=== PATIENT | male | born 1985 | race Two or more races ===

== ENCOUNTER 2016-06-01 15:48 | Emergency (ER) | payer SELFPAY ==
[~2016-06-01] VITALS: Ht 175.3 cm; Wt 72.6 kg
[2016-06-01 16:29] VITALS: BP 122/63
--- NOTE | 2016-06-01 17:03 | Emergency Room Report ---
History of Present Illness General Chief Complaint: Flu Like Symptoms Source: Patient Present Illness HPI 30 YO male Pt. presents to the ED c/o dry cough, nasal congestion, rhinorrhea, and intermittent headache 5/10 in severity x2 days. denies fevers, reports intermittent chills. denies n/v, abdominal pain or rashes. no neck pain. Denies recent travel, ill contacts. he states he is up-to-date with vaccinations including flu. Denies neck pain or stiffness. Denies CP, Palpitations, LOC, AMS, dizziness, Changes in Vision, Sensation, paresthesias, or a sudden severe headache. Allergies: Coded Allergies: No Known Allergies (Unverified , 06/01/16) Patient History Past Medical History: see triage record Past Surgical History: none Pertinent Family History: none Immunizations: UTD Reviewed Nursing Documentation: PMH: Agreed, PSxH: Agreed Nursing Documentation-PMH Past Medical History: No History, Except For Review of Systems All Other Systems: negative except mentioned in HPI Physical Exam Vital Signs Date Time Temp Pulse Resp B/P Pulse Ox O2 Delivery O2 Flow Rate FiO2 06/01/16 16:19 100.8 100 15 122/63 97 Room Air Sp02 EP Interpretation: reviewed, normal General Appearance: no apparent distress, alert, GCS 15, non-toxic Head: normocephalic, atraumatic Eyes: bilateral eye PERRL, bilateral eye normal inspection ENT: hearing grossly normal, normal pharynx, no angioedema, normal voice, TMs + canals normal, uvula midline, moist mucus membranes, nasal congestion - clear rhinorrhea noted, with patent nares, pharyngeal erythema Neck: full range of motion, no meningismus, no bony tend, supple/symm/no masses Respiratory: chest non-tender, lungs clear, normal breath sounds, no rhonchi, no respiratory distress, no retraction, no accessory muscle use, no wheezing, speaking full sentences Cardiovascular #1: regular rate, rhythm, no edema Rectal: deferred Genitourinary: no CVA tenderness Musculoskeletal: back normal, gait/station normal, normal range of motion, non- tender, no calf tenderness Neurologic: alert, oriented x3, responsive, motor strength/tone normal, sensory intact, speech normal Psychiatric: judgement/insight normal, memory normal, mood/affect normal, no suicidal/homicidal ideation Skin: normal color, no rash, warm/dry, well hydrated Lymphatic: no adenopathy Medical Decision Making PA Attestation Dr. Roth is my supervising Physician whom patient management has been discussed with. Diagnostic Impression: Primary Impression: Viral URI with cough ER Course Pt. presents to the ED c/o dry cough, nasal congestion, rhinorrhea, and intermittent headache x2 days. rated as 5/10 in severity. no neck pain. Ddx considered but are not limited to URI, pneumonia, PE, strep pharyngitis, meningitis. Vital signs: Pt. is afebrile, the remaining VS are WNL H&PE are most consistent with URI- no meningeal signs, oropharynx is not involved, no evidence of bacterial infection at this time. ORDERS: none required at this time, the diagnosis is clinical ED INTERVENTIONS: None required at this time. --PT. EDUCATION: Discussed antibiotic resistance with inappropriate prescribing of antibiotics for viral illnesses. Discussed signs and symptoms to indicate viral illness versus bacterial illness. DISCHARGE: At this time pt. is stable for d/c to home. Will provide printed patient care instructions, and any necessary prescriptions. Care plan and follow up instructions have been discussed with the patient prior to discharge. Last Vital Signs Date Time Temp Pulse Resp B/P Pulse Ox O2 Delivery O2 Flow Rate FiO2 06/01/16 16:29 100.8 87 15 122/63 97 Room Air Disposition: HOME, SELF-CARE Condition: Stable Scripts Acetaminophen* (TYLENOL EXTRA STRENGTH*) 500 Mg Tablet 500 MG ORAL Q6H Y for Mild Pain/Temp > 100.5, #30 TAB 0 Refills Prov: Pamela Hdz P.A. 06/01/16 Cetirizine Hcl* (ZYRTEC*) 10 Mg Tablet 10 MG ORAL DAILY, #30 TAB 0 Refills Prov: Pamela Hdz P.A. 06/01/16 Guaifenesin (Guaifenesin) 1,200 Mg Tab.er.12h 1200 MG PO BID for 7 Days, #14 TAB Prov: Pamela Hdz P.A. 06/01/16 D-Methorphan Hb/Prometh Hcl* (PROMETHAZINE-DM SYRUP*) 118 Ml Syrup 5 ML ORAL Q6H Y for For Cough, #118 ML 0 Refills Prov: Pamela Hdz.A. 06/01/16 Referrals: NOT CHOSEN IPA/,REFERRING (PCP) Patient Instructions: Upper Respiratory Infection, Adult Additional Instructions: Take medications as directed. Follow up with PCP in 3-5 days Return sooner to ED if new symptoms occur, or current symptoms become worse. Do not drink alcohol, drive, or operate heavy machinery while taking Cough Syrup as this may cause drowsiness. Pamela Hdz Jun 01, 2016 17:03
[2016-06-01] MEDS ORDERED: GUAIFENESIN1200 MG PO (17:05)
[2016-06-01] MEDS ORDERED: ZYRTEC10 MG ORAL (17:05)
[2016-06-01] MEDS ORDERED: PROMETHAZINE-D118 ML ORAL (17:05)
[2016-06-01] MEDS ORDERED: TYLENOL EXTRA500 MG ORAL (17:05)
== END 2016-06-01 17:40 | disposition home or self-care (01) ==
LOC: EMR 16:30
DX: J06.9 Acute upper respiratory infection, unspecified (principal); B34.9 Viral infection, unspecified
CPT/HCPCS: 99282